=== PATIENT | female | born 1955 | race Caucasian/White ===

== ENCOUNTER 2023-09-20 13:20 | Emergency (ER) | payer MEDICARE ==
[~2023-09-20] VITALS: Ht 167.6 cm; Wt 64.9 kg
[2023-09-20 13:42] VITALS: TEMP 98.4
[2023-09-20] MEDS ORDERED: hydrALAZINE 20mg/ml inj. IV ONE (14:20)
[2023-09-20 14:52] LABS: BASOPHILS # (AUTO) 0.1 X10'3 (0-0.2); BASOPHILS % (AUTO) 0.7 % (0-1); EOSINOPHILS # (AUTO) 0.1 X10'3 (0-0.9); EOSINOPHILS % (AUTO) 0.7 % (0-6); HEMATOCRIT 44.6 % (35.0-45.0); HEMOGLOBIN 14.9 g/dl (12.0-16.0); LYMPHOCYTES # (AUTO) 1.5 X10'3 (1.1-4.8); LYMPHOCYTES % (AUTO) 18.6 % (21-51); MEAN CORPUSCULAR HEMOGLOBIN 31.4 PG (27.0-31.0); MEAN CORPUSCULAR HGB CONC 33.5 g/dL (33.0-36.5); MEAN CORPUSCULAR VOLUME 93.8 FL (78-98); MEAN PLATELET VOLUME 7.5 FL (7.4-10.4); MONOCYTES # (AUTO) 0.5 X10'3 (0-0.9); MONOCYTES % (AUTO) 5.6 % (2-12); NEUTROPHILS % (AUTO) 74.4 % (42-75); PLATELET COUNT 311 X10'3 (140-440); RED BLOOD COUNT 4.75 X10'6 (4.20-5.60); RED CELL DISTRIBUTION WIDTH 13.3 % (11.5-14.5); WHITE BLOOD COUNT 8.1 X10'3 (4.5-11.0)
[2023-09-20 14:55] LABS: BILIRUBIN,URINE NEGATIVE (Neg); CLARITY,URINE CLEAR (Clear); COLOR,URINE YELLOW (Yellow); GLUCOSE, URINE NEGATIVE (Neg); KETONES,URINE NEGATIVE (Neg); LEUKOCYTE ESTERASE ,URINE NEGATIVE (Neg); NITRITES, URINE NEGATIVE (Neg); OCCULT BLOOD,URINE NEGATIVE (Neg); PROTEIN,URINE NEGATIVE (Neg); UROBILINOGEN,URINE 0.2 E.U/dL (0.2-1.0)
[2023-09-20 15:01] LABS: UA COLLECTION TYPE CLN CATCH MIDSTREAM
[2023-09-20 15:12] LABS: ALBUMIN 3.9 G/DL (3.4-5.0); ANION GAP 9 (8-16); BLOOD UREA NITROGEN 13 MG/DL (7-18); BUN/CREATININE RATIO 13.4 (10.0-20.0); CALCIUM 8.8 MG/DL (8.5-10.1); CHLORIDE 103 MMOL/L (99-107); CREATININE 0.97 MG/DL (0.40-0.90); GLUCOSE 118 MG/DL (70-104); POTASSIUM 3.1 MMOL/L (3.5-5.1); SODIUM 141 MMOL/L (135-145); TOTAL CARBON DIOXIDE 29.5 MMOL/L (24-32); eCRCL 52 ML/MIN; eGFR 57 ML/MIN
[2023-09-20] MEDS ORDERED: POTASSIUM BICARB 20meq eff tab 20 MEQ TABLET.EFF PO SCH (15:25)
[2023-09-20] MEDS ORDERED: POTASSIUM BICARB 20meq eff tab 20 MEQ TABLET.EFF PO ONE (15:25)
[2023-09-20 16:15] LABS: MAGNESIUM 2.1 MG/DL (1.5-2.4)
[2023-09-20] MEDS ORDERED: HYDR50TA46 PO (17:53)
[2023-09-20 18:12] VITALS: BP 181/111; PULSE 92; RESP 17; O2SAT 95
== END 2023-09-20 18:13 | disposition home or self-care (01) ==
LOC: ER 13:20
DX: I12.9 Hypertensive chronic kidney disease with stage 1 through stage 4 chronic kidney disease, or unspecified chronic kidney disease (principal); N18.9 Chronic kidney disease, unspecified; E87.8 Other disorders of electrolyte and fluid balance, not elsewhere classified; R20.0 Anesthesia of skin; F12.90 Cannabis use, unspecified, uncomplicated; Z79.899 Other long term (current) drug therapy
CPT/HCPCS: 36415; 70450; 71045; 80048; 81003; 82948; 83735; 84484; 85025; 93005; 96374; 99285; J0360